=== PATIENT | female | born 1940 | race Caucasian/White ===

== ENCOUNTER 2017-02-09 00:53 | Emergency (ER) | payer MEDICARE, BC ==
[~2017-02-09] VITALS: Ht 165.1 cm; Wt 50.0 kg
[~2017-02-09 00:53] MED LIST: ALPH0.15 OP; ASPI81TA11 PO; DILT180C56 PO
[2017-02-09 00:55] VITALS: BP 178/107; PULSE 114; RESP 18; TEMP 98.2; O2SAT 100
--- NOTE | 2017-02-09 01:03 | PD ---
HPI Chief Complaint: cardiac complaint Time Seen by Provider: 01:02 Travel History International Travel<30 days: No Contact w/Intl Traveler<30days: No Traveled to known affect area: No History of Present Illness HPI 77-year-old female presents to the emergency department for complaint of atrial fibrillation. Patient states she has a history of hypertension and atrial fibrillation. Patient is followed by Dr. Stanford. Patient takes aspirin daily. Patient states that she has felt well with no recent illness. Patient denies chest pain or shortness of breath. Patient states just prior to arrival to the emergency department she started noticing that she was having some fluttering in her chest. Patient states she occasionally has this often times has episodes of atrial fibrillation for which she is reportedly asymptomatic is only detected when someone he tells for this while checking her pulse or blood pressure. Patient states tonight however she felt her heart racing and comes to the emergency department for further evaluation. Patient states she is prescribed diltiazem and has been taking the medication as prescribed. Patient this time notes that she is not having chest pain or shortness of breath also denies nausea vomiting referred neck jaw back shoulder arm or abdominal pain. No recent febrile illness no recent respiratory illness patient does not report any orthopnea or PND. Patient rates pain 0/10 in intensity. Patient is unable to identify exacerbating or alleviating factors. PFSH Past Medical History Narrative Medical Atrial fibrillation GERD glaucoma hypertension; no tobacco use no alcohol use; nursing notes reviewed Atrial Fibrillation: Yes Blood Disorders: No Heart Rhythm Problems: Yes (ATRIAL FIBRILLATION) Cancer: No Cardiovascular Problems: Yes (afib episodes) High Cholesterol: No Chemotherapy: No Congestive Heart Failure: No Diminished Hearing: No Endocrine: No Gastrointestinal Disorders: Yes (ACID REFLUX) GERD: Yes Glaucoma: Yes (left eye) Genitourinary: No Hepatitis: No Hiatal Hernia: No Hypertension: Yes Immune Disorder: No Musculoskeletal: Yes (OSTEOPOROSIS) Neurologic: No Psychiatric: No Reproductive: No Respiratory: No Immunizations Current: Yes Myocardial Infarction: No Radiation Therapy: No Ulcer: No Menopausal: Yes Past Surgical History AICD: No Appendectomy: No Arteriovenous Shunt: No Cholecystectomy: No Insulin Pump: No Joint Replacement: No Pacemaker: No Other Surgery: Yes Social History Alcohol Use: No Tobacco Use: No Substance Use: No Allergies-Medications (Allergen,Severity, Reaction): Coded Allergies: Shrimp (Verified Allergy, Severe, 01/27/13) Cortisone (Verified Allergy, Mild, 01/27/13) Iodine (Verified Allergy, Mild, 01/27/13) Sulfa (Verified Allergy, Mild, HIVES, 01/27/13) Reported Meds & Prescriptions Reported Meds & Active Scripts Active Reported Aspirin 81 Mg Tabdr 81 Mg PO DAILY Diltiazem CD 24 HR 180 Mg Caper 180 Mg PO DAILY Review of Systems Except as stated in HPI: all other systems reviewed are Neg General / Constitutional: No: Fever, Chills HENT: No: Headaches, Vertigo, Lightheadedness, Congestion Cardiovascular: Positive: Palpitations, No: Chest Pain or Discomfort, Diaphoresis, Syncope, Dyspnea on exertion Respiratory: No: Shortness of Breath Gastrointestinal: No: Nausea, Vomiting, Abdominal Pain Genitourinary: No: Flank Pain Musculoskeletal: No: Myalgias, Arthralgias Skin: No Rash Neurologic: No: Weakness, Dizziness, Syncope, Focal Abnormalities, Coordination Problem Psychiatric: No: Anxiety Endocrine: No: Heat Intolerance Hematologic/Lymphatic: No: Easy Bruising Physical Exam Narrative GENERAL: Well-developed well-nourished female in no acute distress no respiratory distress SKIN: Warm and dry. HEAD: Normocephalic. EYES: No scleral icterus. No injection or drainage. NECK: Supple, trachea midline. No JVD or lymphadenopathy. CARDIOVASCULAR: Increased irregular irregular rate and rhythm without murmurs, gallops, or rubs. RESPIRATORY: Breath sounds equal bilaterally. No accessory muscle use. GASTROINTESTINAL: Abdomen soft, non-tender, nondistended. MUSCULOSKELETAL: No cyanosis, or edema. Radial and dorsalis pedis pulses 2+ to palpation BACK: Nontender without obvious deformity. No CVA tenderness. Data Data Last Documented VS Vital Signs Date Time Temp Pulse Resp B/P Pulse Ox O2 Delivery O2 Flow Rate FiO2 02/09/17 03:19 74 16 174/88 99 02/09/17 02:12 Room Air 02/09/17 00:55 98.2 Orders Electrocardiogram (02/09/17 01:02) Basic Metabolic Panel (Bmp) (02/09/17 01:02) Ckmb (Isoenzyme) Profile (02/09/17 01:02) Complete Blood Count With Diff (02/09/17 01:02) Magnesium (Mg) (02/09/17 01:02) Prothrombin Time / Inr (Pt) (02/09/17 01:02) Act Partial Throm Time (Ptt) (02/09/17 01:02) Troponin I (02/09/17 01:02) Chest, Single Ap (02/09/17 01:02) Ecg Monitoring (02/09/17 01:02) Bilateral Bp Monitoring (02/09/17 01:02) Iv Access Insert/Monitor (02/09/17 01:02) Oximetry (02/09/17 01:02) Oxygen Administration (02/09/17 01:02) Aspirin Chew (Aspirin Chew) (02/09/17 01:15) Sodium Chloride 0.9% Flush (Ns Flush) (02/09/17 01:15) Labs Laboratory Tests Test 02/09/17 01:00 White Blood Count 8.3 TH/MM3 Red Blood Count 4.86 MIL/MM3 Hemoglobin 14.2 GM/DL Hematocrit 42.8 % Mean Corpuscular Volume 88.2 FL Mean Corpuscular Hemoglobin 29.2 PG Mean Corpuscular Hemoglobin 33.1 % Concent Red Cell Distribution Width 13.3 % Platelet Count 347 TH/MM3 Mean Platelet Volume 8.3 FL Neutrophils (%) (Auto) 54.5 % Lymphocytes (%) (Auto) 25.9 % Monocytes (%) (Auto) 8.2 % Eosinophils (%) (Auto) 7.4 % Basophils (%) (Auto) 4.0 % Neutrophils # (Auto) 4.5 TH/MM3 Lymphocytes # (Auto) 2.2 TH/MM3 Monocytes # (Auto) 0.7 TH/MM3 Eosinophils # (Auto) 0.6 TH/MM3 Basophils # (Auto) 0.3 TH/MM3 CBC Comment DIFF FINAL Differential Comment Prothrombin Time 10.8 SEC Prothromb Time International 1.0 RATIO Ratio Activated Partial 28.2 SEC Thromboplast Time Sodium Level 142 MEQ/L Potassium Level 4.0 MEQ/L Chloride Level 105 MEQ/L Carbon Dioxide Level 29.4 MEQ/L Anion Gap 8 MEQ/L Blood Urea Nitrogen 16 MG/DL Creatinine 0.91 MG/DL Estimat Glomerular Filtration 60 ML/MIN Rate Random Glucose 94 MG/DL Calcium Level 8.8 MG/DL Magnesium Level 2.3 MG/DL Total Creatine Kinase 76 U/L Troponin I LESS THAN 0.02 NG/ML MDM Medical Decision Making Medical Screen Exam Complete: Yes Emergency Medical Condition: Yes Medical Record Reviewed: Yes Interpretation(s) EKG: Normal sinus rhythm rate 84 occasional PACs nonspecific septal T wave inversion no acute ST elevation or injury pattern change Last Impressions Chest X-Ray 02/09/17 0102 Signed Impressions: Service Date/Time: Thursday, February 09, 2017 01:43 - CONCLUSION: Hyperinflation suggesting COPD. No acute infiltrate or effusion. Camden Tan Jr., MD CBC & BMP Diagram 02/09/17 01:00 Vital Signs Date Time Temp Pulse Resp B/P Pulse Ox O2 Delivery O2 Flow Rate FiO2 02/09/17 02:12 74 16 174/87 100 Room Air 02/09/17 01:37 85 16 185/99 100 Room Air 02/09/17 01:25 180/111 02/09/17 01:25 90 18 180/111 100 Room Air 02/09/17 01:25 100 Room Air 02/09/17 00:55 98.2 114 18 178/107 100 Troponin I: Less than 0.02, not elevated; CK: 76, not elevated Differential Diagnosis Palpitations, atrial fibrillation, arrhythmia, ACS, CHF, electrolyte disturbance , thyroid dysfunction Narrative Course Patient placed on cheesemaker helper IV access obtained EKG ordered while patient at bedside and nursing staff performing tasks patient was asked to cough perform Valsalva and gentle carotid massage performed and subsequently converted to sinus rhythm At 1:03 AM patient responded to vagal maneuvers atrial fibrillation by cheesemaker helper rate 114-125 converted to normal sinus rhythm after vagal maneuvers at bedside Patient monitored in the emergency department lab values sent for resulting Lab values found to be in normal range troponin I less than 0.02 and CK not elevated Patient has been monitored remained asymptomatic and no recurrence of atrial fibrillation has had occasional PACs; patient is desirous of being discharged to 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 Diagnosis Primary Impression: Paroxysmal atrial fibrillation Referrals: Supervisor Wet Pour 2 days Call office for follow-up appointment with your stone breaker Dr. Stanford Primary Care Physician call for appointment Patient Instructions: General Instructions Additional Instructions: Increase fluid hydration Continue diltiazem as prescribed Follow-up with your stone breaker call office on Saturday to schedule follow-up appointment Take a regular strength aspirin daily until follow-up with cardiology Return to the emergency department for any concerns or change in condition Disposition: 01 DISCHARGE HOME Condition: Stable Callie Galicia MD Feb 09, 2017 01:03
[2017-02-09] MEDS ORDERED: ASPIRIN 81 MG CHEW TAB PO ONE (01:15)
[2017-02-09] MEDS ORDERED: SODIUM CHLORIDE 0.9% FLUSH 10 ML FLUSH IVF PRN (01:15)
[2017-02-09 01:18] LABS: AUTOMATED NEUTROPHIL # 4.5 TH/MM3 (1.8-7.7); BASOPHIL # 0.3 TH/MM3 (0-0.2); EOSINOPHIL # 0.6 TH/MM3 (0-0.4); EOSINOPHIL % 7.4 % (0.0-4.0); HEMATOCRIT 42.8 % (35.0-46.0); HEMO FLAGS DIFF FINAL; LYMPH % 25.9 % (9.0-44.0); LYMPHOCYTE # 2.2 TH/MM3 (1.0-4.8); MEAN CELL VOLUME 88.2 FL (80.0-100.0); MEAN CORPUSCULAR HEMOGLOBIN 29.2 PG (27.0-34.0); MEAN CORPUSCULAR HGB CONC 33.1 % (32.0-36.0); MONO % 8.2 % (0.0-8.0); NEUT % 54.5 % (16.0-70.0); PLATELET COUNT 347 TH/MM3 (150-450); RED BLOOD COUNT 4.86 MIL/MM3 (4.00-5.30); RED CELL DISTRIBUTION WIDTH 13.3 % (11.6-17.2); WHITE BLOOD COUNT 8.3 TH/MM3 (4.0-11.0)
[2017-02-09 01:25] VITALS: BP 180/111; PULSE 90; RESP 18; O2SAT 100
[2017-02-09 01:29] LABS: CHLORIDE 105 MEQ/L (98-107); SODIUM (NA) 142 MEQ/L (136-145)
[2017-02-09 01:32] LABS: ANION GAP 8 MEQ/L (5-15); BICARBONATE 29.4 MEQ/L (21.0-32.0); BLOOD UREA NITROGEN 16 MG/DL (7-18); MAGNESIUM 2.3 MG/DL (1.5-2.5)
[2017-02-09 01:33] LABS: APTT (PATIENT) 28.2 SEC (24.3-30.1); PROTHROMBIN TIME - PATIENT 10.8 SEC (9.8-11.6)
[2017-02-09 01:35] LABS: GLOMERULAR FILTRATION RATE 60 ML/MIN (>89)
[2017-02-09 01:37] VITALS: BP 185/99; PULSE 85; RESP 16; O2SAT 100
[2017-02-09 01:41] LABS: CREATINE KINASE 76 U/L (26-192)
--- NOTE | 2017-02-09 01:54 | RADHPO ---
EXAM DATE/TIME: 02/09/2017 01:43 [facility] COMPARISON: CHEST SINGLE AP, January 24, 2013, 1:18. INDICATIONS : Chest pain. MEDICAL HISTORY : None. SURGICAL HISTORY : None. ENCOUNTER: Initial ACUITY: 1 day PAIN SCORE: 7/10 LOCATION: Bilateral chest FINDINGS: A single view of the chest demonstrates the lungs to be symmetrically aerated without evidence of mas s, infiltrate or effusion. The lungs are hyperinflated bilaterally. The cardiomediastinal contours a re unremarkable. Osseous structures are intact. CONCLUSION: Hyperinflation suggesting COPD. No acute infiltrate or effusion. Camden Tan Jr., MD on February 09, 2017 at 1:52 Board Certified Radiologist. This report was verified electronically.
[2017-02-09 02:12] VITALS: BP 174/87; PULSE 74; RESP 16; O2SAT 100
[2017-02-09 02:45] VITALS: BP 187/91; PULSE 75; RESP 16
[2017-02-09] MEDS ORDERED: DILT180C56 PO (03:18)
[2017-02-09] MEDS ORDERED: ASPI1TAB69 PO (03:18)
[2017-02-09 03:19] VITALS: BP 174/88
--- NOTE | 2017-02-09 13:29 | EKG ---
Date Performed: 02/09/2017 Time Performed: 00:59:58 PTAGE: 77 years EKG: Sinus rhythm with PAC(s). Septal T wave changes are nonspecific Anteroseptal injury Continued evolution from prio r acute injury Borderline ECG PREVIOUS TRACING : 01/27/2013 09.18 DOCTOR: Isma Duff Interpretating Date/Time 02/09/2017 13:27:57
== END 2017-02-09 03:21 | disposition home or self-care (01) ==
LOC: PHED 00:53
DX: I48.0 Paroxysmal atrial fibrillation (principal); M81.0 Age-related osteoporosis without current pathological fracture; I10 Essential (primary) hypertension; H40.9 Unspecified glaucoma; K21.9 Gastro-esophageal reflux disease without esophagitis
CPT/HCPCS: 71010; 80048; 82550; 83735; 84484; 85025; 85610; 85730; 93005